=== PATIENT | female | born 1975 | race Caucasian/White ===

== ENCOUNTER 2018-01-02 18:10 | Emergency (ER) | payer OTHER ==
[~2018-01-02] VITALS: Ht 170.2 cm; Wt 104.8 kg
[2018-01-02 18:18] VITALS: BP 138/87
[2018-01-02] MEDS ORDERED: TOPROL XL25 M2 PO ×2 (18:20→18:59)
--- NOTE | 2018-01-02 18:20 | ED GENERAL ADULT ---
History of Present Illness General Chief Complaint: General Adult Stated Complaint: ELEVATED BP Source: patient Exam Limitations: no limitations Vital Signs & Intake/Output Vital Signs & Intake/Output Vital Signs Date Time Temp Pulse Resp B/P B/P Pulse O2 O2 Flow FiO2 Mean Ox Delivery Rate 01/02 1819 95 01/02 1818 97.6 103 18 138/87 95 Room Air Allergies Coded Allergies: No Known Allergies (01/02/18) Reconcile Medications Metoprolol Succ XL (Toprol XL) 25 MG TAB.ER.24H 1 TAB PO DAILY HTN Metoprolol Succ XL (Toprol XL) 25 MG TAB.ER.24H 1 TAB PO DAILY HTN Triage Note: PT STATES SHE HAS BEEN HAVING [place] BLOOD PRESSURE PT WAS AT HER [employer]IROP[employer]CTOR AND HAD HTN. PT SAW PCP LAST WEEK AND WILL BE SEEING HIM ON MONDAY. PT BP 138/87 IN TRIAGE. PT STATES SHE HAS ANXIETY AND DEPRESSION AND IS NOT SURE IF THIS IS THE REASON SHE IS GETTING HTN ON AND OFF. Triage Nurses Notes Reviewed? yes Onset: Abrupt Duration: day(s): Timing: recent history Injury Environment: home : No Patient currently breastfeeds: No HPI: 42-year-old female comes into the emergency room because her blood pressures been elevated at home. Patient reports she's had multiple readings of 160s with diastolic of 100. She denies any chest features of a lightheaded dizziness or passing out. She complains of a frontal headache but it feels consistent with her previous headaches. She's had migraine headaches and she was a child. (Dougie Meade) Past History Travel History Traveled to [place] past 21 day No Medical History Any Pertinent Medical History? see below for history Psychiatric: anxiety, bipolar disease, depression Surgical History Surgical History: non-contributory Psychosocial History What is your primary language Wolof Tobacco Use: Current Daily Use Daily Tobacco Use Amount/Type: => 5 Cigarettes daily ETOH Use: occasional use Illicit Drug Use: denies illicit drug use Family History Hx Contributory? No (Dougie Meade) Review of Systems Review of Systems Constitutional: Reports: no symptoms. EENTM: Reports: no symptoms. Respiratory: Reports: no symptoms. Cardiovascular: Reports: no symptoms. GI: Reports: no symptoms. Genitourinary: Reports: no symptoms. Musculoskeletal: Reports: no symptoms. Skin: Reports: no symptoms. Neurological/Psychological: Reports: no symptoms. Hematologic/Endocrine: Reports: no symptoms. Immunologic/Allergic: Reports: no symptoms. All Other Systems: Reviewed and Negative (Dougie Meade) Physical Exam Physical Exam General Appearance: well developed/nourished, no apparent distress, alert, awake Head: atraumatic, normal appearance Eyes: Bilateral: normal appearance. Ears, Nose, Throat: normal ENT inspection, hearing grossly normal Neck: normal inspection Respiratory: normal breath sounds, no respiratory distress Cardiovascular: regular rate/rhythm Back: normal inspection Extremities: normal inspection Neurologic/Psych: awake, alert, oriented x 3 Skin: intact, normal color Core Measures ACS in differential dx? No CVA/TIA Diagnosis: No Sepsis Present: No Sepsis Focused Exam Completed? No (Dougie Meade) Progress Differential Diagnoses I considered the following diagnoses in my evaluation of the patient: HTN, HTN URGENCY, Plan of Care: 01/02/2018 7:46:56 PM she can clinically looks well. In no apparent distress. She has no complaints of chest pain or shortness of breath. She has a history of chronic intermittent migraines and this feels similar with her previous migraines. Headache is frontal. No light sensitivity. NO noise sensitivity. No vomiting. No visual changes. Her blood pressure is slightly elevated here. She's been having readings of 160 systolic with a diastolic of about 100 at home. I explained to the patient we can start her on a blood pressure medication since she's been elevated at home. Metoprolol was chosen for 2 reasons. One the patient has anxiety issues and her heart rate was slightly on the higher side around 100. I felt the metoprolol would be appropriate for addressing her anxiety as well as her heart rate which she says usually runs around 100 which is normal for her. Initial ED EKG: none (Dougie Meade) Departure Departure Disposition: HOME OR SELF CARE Condition: Stable Clinical Impression Primary Impression: Hypertension Referrals: Simi Vora (PCP/Family) Additional Instructions: Take metoprolol as prescribed. Follow-up with primary care doctor. Have blood pressure rechecked. Return if any chest pain shortness of breath syncope increasing headache vision loss or any other concerns worsening symptoms. Please go over all results of today's visit with your primary care doctor. Contact your primary care doctor to let them know you were here in the emergency room. There may be nonspecific findings which may not be related to your visit today here in the emergency room but may require further evaluation and chronic monitoring by your primary care doctor. If you had a laceration today the chance of foreign body always remains. You should follow-up with your primary care doctor for recheck in 3-5 days for a wound check. If you had an x-ray done there is a chance that a fracture could have been missed on initial read and you should follow-up with your primary care doctor for repeat x-rays if symptoms persist. If your blood pressure was elevated here in the emergency room please have rechecked by keesha primary care doctor within the next 48. If you were prescribed a narcotic here in the emergency room or any type of controlled substances you're not allowed to drive while taking this medication or operate any type of heavy machinery. Narcotics can make you feel lightheaded dizziness nausea and can cause constipation. You may need to coal picker a stool softener. Thank you for choosing [facility] emergency room. Please return to the emergency room immediately if you have any other concerns worsening of symptoms. Departure Forms: Customer Survey General Discharge Information Prescriptions: Current Visit Scripts Metoprolol Succ XL (Toprol XL) 1 TAB PO DAILY #30 TAB Metoprolol Succ XL (Toprol XL) 1 TAB PO DAILY #30 TAB (Dougie Meade) PA/DEMURRAGE CLERK Co-Sign Statement Statement: ED Attending supervision documentation- [] I saw and evaluated the patient. I have also reviewed all the pertinent lab results and diagnostic results. I agree with the findings and the plan of care as documented in the PA's/DEMURRAGE CLERK's documentation. [X] I have reviewed the ED Record and agree with the PA's/DEMURRAGE CLERK's documentation. [] Additions or exceptions (if any) to the PAs/DEMURRAGE CLERK's note and plan are summarized below: [] (Sweetie ARMENTA,Miguelito Dumont) Critical Care Note Critical Care Note Critical Care Time: non-applicable (Dougie Meade)
== END 2018-01-02 18:59 ==
LOC: ERH 18:10
DX: I10 Essential (primary) hypertension (principal); F17.210 Nicotine dependence, cigarettes, uncomplicated